=== PATIENT | female | born 1980 ===

== ENCOUNTER 2016-12-29 19:34 | Inpatient (IN) | payer MEDICAID, SELFPAY ==
[2016-12-29 19:52] VITALS: BMI 29.2
[2016-12-29] MEDS ORDERED: Lactated Ringer's 1,000 ML IV ONE (19:54)
[2016-12-29] MEDS ORDERED: Ampicillin 2 GM in Sodium Chloride 0.9% 100 ML IVPB ONE (19:55)
[2016-12-29 21:28] LABS: BASO % 0.2 % (0.0-2.0); EOS % 0.3 % (0.0-4.0); HEMATOCRIT 34.4 % (34.0-47.0); LYMPH # 1.5 K/uL (1.0-4.3); LYMPH % 23.3 % (20.0-40.0); MEAN CELL VOLUME 86.4 fl (81.0-99.0); MEAN CORPUSCULAR HEMOGLOBIN 28.2 pg (27.0-31.0); MEAN CORPUSCULAR HGB CONC 32.7 g/dL (33.0-37.0); MEAN PLATELET VOLUME 10.5 fl (7.2-11.7); MONO # 0.3 K/uL (0.0-0.8); MONO % 5.3 % (0.0-10.0); NEUT # 4.4 K/uL (1.8-7.0); NEUT % 70.9 % (50.0-75.0); RED CELL DISTRIBUTION WIDTH 15.5 % (11.5-14.5); WHITE BLOOD COUNT 6.3 K/uL (4.8-10.8)
--- NOTE | 2016-12-29 23:24 | OBHP ---
Datetime: 12/29/2016 20:31 HEENT - PN: Normal IP Hx Assessment: The History has been Reviewed and is Current IP Indication for Induction: Polyhydramnios; Other IP Indication for Induction Oth: AST: 97, ALT:172, Alk Phos:340 (Annotations: Data stored by N on behalf of user) IP Chief Complaint: Other DTRs - PN: Not Done Datetime: 12/29/2016 20:30 IP Adm Impression: Term, intrauterine ; No Active Labor; Intact Membranes IP Admit Plan: Admit to unit; Initiate labor induction protocol Admit Comment, IP Provider: [employer] medical records technician # [id number] 36 YO F @ 39.3 weeks w/ cholestasis presents to [facility] from [facility] to be induced. - Denies LOF, CTX, VB. Has +ve movements - PT intially requested leaving AMA, she was explained all complications and risks of leaving. All questions were answered, patient has decided to stay and continue with the induction of labor. -POBHX: 1 previous , Current: Cholestasis, Polyhydramnios, AMA PMH: Anemia PSH: Cholecystectomy Allergy:NKDA Medicine: Topical benedryl, PNV, Iron F/H: None HIV: neg GBS: Positive Rubella: Immune HBsAg: neg Social Hx: Denies alcohol and drug use A/P 36 YO F @ 39.3 weeks is being induced - Continuous monitoring - Soap and water enema - Penicillin G 5MU followed by Penicilling G 2.5 MU Q4. - Cytotec Fay Zaidi M.D. PGY-1 OB Hospitalist note. Notfied earlier today by Natty Cali at [facility]...pt had elevated LFT's on y . MFM was consulted because she had LFT's in November which were spring lower. She was being followed for cholestasis of preg (bile acids repeat were pending). She still c/o itching. +FM; No SROM; no VB; No CTX A: IUP at 39w/elevated LFT's/borderline polyhydramnio (acc to [facility])/ AMA / GBS+ PLAN: admit to L_D; discussion with pt and her about medical condition, IOL, labor, delivr ey and pain management. They understood. MAHNDO Pelvic Type - PN: Adequate Extremities - PN: Normal Abdomen - PN: Normal Back - PN: Normal Lungs - PN: Normal Heart - PN: Normal Neurologic - PN: Normal General - PN: Normal Presentation-Admit: Vertex FHR - Baseline A Provider: 120 Membranes, Provider: Intact Contraction Comments Provider: occ Comments, ACOG Physical Exam: ROS: Geneeral no weakness; no fatigue HEENT: No MCNEILL; no visual dist Resp: No SOB; no Cough CV: NO CP; no palpitations GI: No N/V/D : No F/U/D MS: NO joint pain Pool Provider: Negative Vital Signs Provider: Reviewed; Within Normal Limits NICHD Variability Prov Fetus A: Moderate 6-25bpm NICHD Accel Fetus A IP Provider: [id number] FHR Category Provider Fetus A: Category I NICHD Decel Fetus A IP Provider: None Dilatation, Provider: 1 Station, Provider: -3 Genitourinary Exam: Normal
[2016-12-30] MEDS ORDERED: AMPicillin 1 GM in Sodium Chloride 0.9% 100 ML IVPB SCH (01:00)
[2016-12-30] MEDS ORDERED: Penicillin G 5 Million Unit Vial IVPB ONE (05:22)
[2016-12-30 07:53] VITALS: TEMP 98.4
[2016-12-30] MEDS: Lactated Ringer's 1,000 ML IV SCH ×2 (10:00→19:05)
[2016-12-30] MEDS ORDERED: Oxytocin 30 units/LR 500ML 30 U/500 ML BAG IV ONE ×3 (10:43→17:32)
--- NOTE | 2016-12-30 11:17 | OBPN ---
Datetime: 12/30/2016 10:57 IP Progress Impression Other: Undergoing IOL secondary to cholestasis of IP Informed Consent Obtain: Risks, Benefits and Alternatives Discussed IP Progress Plan: Augmentation; Anesthesia consult Contraction Comments Provider: q2-4min FHR - Baseline A Provider: 140 Presentation-Admit: Vertex IP Progress Note Comment: 36 y/o P1 at 39w4d based on LMP 03/28/16 c/w 2nd TM u/s EDC 01/02/17. Admitt ed for IOL for cholestasis of and polyhydramnios. Pt is s/p cytotec x 3, last dose at 6:50a and s/p AROM at 9:15a by Dr. Carroll. PNC: [facility] w/ Natty Cali PNI: 1. cholestasis of : 12/28/16 AST 97/ALT 172, 12/05: Total bile acid 7.1, cholic acid 2.8, d eoxycholic acid 2.5. Pt reports intense pruritus generalized including palms and soles, no rash. 2. anemia: 12/29 H/H 11.2/34.4 plt 191 3. GCT+/GTT neg 4. GBS positive baceteriuria: 1st dose of penecillin given 5. AMA: had amnio, neg results, informaseq low risk Pmhx/pshx: cholecystectomy, uncomplicated All: morphine-severe headache Social hx: denies x 3 see vs above SVE by Dr. Carroll at 9a, 1-2/75/0, AROM clear moderate amt of fluid A/P: 36 y/o P1 at 39w4d undergoing IOL secondary to cholestasis of and polyhydramnios 1. Labor: s/p cytotec x 3, s/p AROM, pt requests epidural now, will start pitocin for augmentation after epidural placement 2. Fetus: category 1 tracing 3. GBS positive s/p loading dose of penicillin 4. analgesia: discussed risks vs benefits of epidural analgesia w/ patient and she requests epidur al placement, anesthesia consult, needs 1L bolus now 5. anticipate Vital Signs Provider: Reviewed; Within Normal Limits NICHD Accel Fetus A IP Provider: 15X15 FHR Category Provider Fetus A: Category I NICHD Variability Prov Fetus A: Moderate 6-25bpm NICHD Decel Fetus A IP Provider: None Datetime: 12/29/2016 20:30 Pool Provider: Negative Membranes, Provider: Intact Dilatation, Provider: 1 Station, Provider: -3
[2016-12-30] MEDS ORDERED: Lactated Ringer's 1,000 ML IV SCH (11:30)
[2016-12-30] MEDS ORDERED: Bupivacaine HCl 0.25% PF (10 ml) Inj ONE (12:02)
[2016-12-30] MEDS ORDERED: Fentanyl/Bupivacaine HCl 250 ML EPI ONE (12:02)
[2016-12-30] MEDS ORDERED: Oxytocin 20 units in LR 0 ML IV ONE (15:53)
--- NOTE | 2016-12-30 17:40 | OBDS ---
DELIVERY PERSONNEL Nurse Inbound Sales Consultant Certified: mark Delivery Doctor: Dr Glen Monsivais Nurse: mark Tree Specialist: RENUKA wong Anesthesiologist: Dr Kan Regulator Tester: mark Resident: Dr Stewart MATERNAL INFORMATION Delivery Anesthesia: Epidural Medications in Delivery: pitocin 30 in RL 500cc Estimated Blood Loss (ml): 250cc Placenta Cultured: No Maternal Complications: None RN Comments: to alive baby boy; 9/9; uneventful delivery; see md's notes Provider Comments: Delivered a live baby boy at 1628 that it was bulb suctioned on the perineum the transient maternal chest. The cord was clamped and cut and 3 vessels noted, cord blood was obtained a nd sent to the lab. There was a first-degree laceration which was repaired with 2-[address] nta was delivered at 5:15 PM intact. Estimated blood loss was 200 mL. The mother tolerated the proced ure well and the baby went to the nursery with Apgars of 9 weighing 4045 g LABOR SUMMARY EDC: 01/02/2017 00:00 No. Babies in Womb: 1 Attempted: No Labor Anesthesia: Epidural LABOR INFORMATION Onset of Labor: 12/30/2016 22:00 Complete Dilatation: 12/30/2016 16:10 Cervical Ripening Agents: Cytotec @ (Annotations: 50mcg PO at 06:55am) Cervical Ripening Agents: Cytotec @ 50mcg PO given as ordered Cervical Ripening Agents: Cytotec @ 50mcg PO Other Ripening Agents: na Oxytocin: Augmentation Group B Beta Strep: Positive Antibiotics # of Doses: 2 Antibiotics Time of Last Dose: 1515 Steroids Given: None MEMBRANES Membranes Rupture Method: Artificial Rupture of Membranes: 12/30/2016 09:50 Length of Rupture (hrs): 6.63 Amniotic Fluid Color: Clear Amniotic Fluid Amount: Large Amniotic Fluid Odor: Normal STAGES OF LABOR Stage 1 hrs: -5 Stage 1 min: -50 Stage 2 hrs: 0 Stage 2 min: 18 Stage 3 hrs: 0 Stage 3 min: 47 Total Time in Labor hrs: -4 Total Time in Labor min: -45 VAGINAL DELIVERY Laceration Extension: Second Degree Laceration Type: Perineal Laceration Repair: Yes Laceration Repair Note: 2.0 rapide Initial Vag Sponge Count: 5 Final Vag Sponge Count: 5 Initial Vag Sharps Count: 1 Final Vag Sharps Count: 1 Sharps Count Correct: Yes Count Comment: correct BABY A INFORMATION Infant Delivery Date/Time: 12/30/2016 16:28 Method of Delivery: Vaginal Born in Route : No : N/A Forceps: Outlet Vacuum Extraction: N/A Shoulder Dystocia : No SHOULDER DYSTOCIA BABY A Infant Delivery Date/Time: 12/30/2016 16:28 PRESENTATION/POSITION BABY A Presentation: Cephalic Cephalic Presentation: Vertex Vertex Position: Left Occipital Anterior Breech Presentation: N/A PLACENTA INFORMATION BABY A Placenta Delivery Time : 12/30/2016 17:15 Placenta Method of Delivery: Spontaneous Placenta Status: Delivered SCORES BABY A Heart Rate 1 min: >100 bpm Resp Effort 1 min: Good Cry Reflex Irritability 1 min: Cough or Sneeze or Pulls Away Muscle Tone 1 min: Active Motion Color 1 min: Body [place], Extremities Blue SCORE 1 MIN: 9 Heart Rate 5 min: >100 bpm Resp Effort 5 min: Good Cry Reflex Irritability 5 min: Cough or Sneeze or Pulls Away Muscle Tone 5 min: Active Motion Color 5 min: Body [place], Extremities Blue SCORE 5 MIN: 9 INFORMATION BABY A Gestational Age at Delivery: 39.0 Gestational Status: Term Outcome : Liveborn Condition : Stable Sex: Male IDENTIFICATION/MEDS BABY A ID Band Number: [id number] ID Band Location: Left Leg; Left Arm WEIGHT/LENGTH BABY A Infant Birthweight (gms): 4045 Infant Weight (lb): 8 Infant Weight (oz): 15 CORD INFORMATION BABY A No. Cord Vessels: 3 Nuchal Cord : Around Neck x1, Loose Nuchal Cord Other: 0 True Knot: 0 Infant Cord pH Baby Arterial: na Infant Cord pH Baby Venous: na Cord Blood Taken: Yes Banking/Donate Info: no Suction: Mouth; Nose; Pharynx
[2016-12-30 17:50] VITALS: RESP 17
[2016-12-30 19:03] VITALS: BP 103/61; PULSE 71
[2016-12-31 07:16] LABS: BASO % 0.1 % (0.0-2.0); EOS % 0.4 % (0.0-4.0); HEMATOCRIT 29.6 % (34.0-47.0); LYMPH # 1.8 K/uL (1.0-4.3); LYMPH % 17.2 % (20.0-40.0); MEAN CELL VOLUME 86.8 fl (81.0-99.0); MEAN CORPUSCULAR HEMOGLOBIN 28.1 pg (27.0-31.0); MEAN CORPUSCULAR HGB CONC 32.4 g/dL (33.0-37.0); MEAN PLATELET VOLUME 10.9 fl (7.2-11.7); MONO # 0.6 K/uL (0.0-0.8); NEUT % 76.3 % (50.0-75.0); RED CELL DISTRIBUTION WIDTH 15.4 % (11.5-14.5); WHITE BLOOD COUNT 10.5 K/uL (4.8-10.8)
--- NOTE | 2017-01-01 07:46 | OBPPN ---
Datetime: 01/01/2017 06:24 PP Pain Prov: Within normal limits PP Nausea Prov: Denies PP Flatus Prov: Yes PP BM Prov: Yes PP Heart Prov: Normal PP Lungs Prov: Normal PP Abdomen/Uterus Prov: Normal PP Lochia Prov: Normal PP Extremities Prov: Normal PP C/S Incision Prov: Not Applicable PP Progress Prov: Normal PP Comments Phys Exam Prov: Fundus firm below umbilicus - Dry skin and scratch cota noted on her lower extremities PP Impression Prov: Normal progression PP Plan Prov: Continue present management PP Progress Note Prov: 36 yo , w/ h/o cholestasis seen and examined bedside. Pt is continuing o n complaining of upper and lower extremity itchiness. She reports mild pelvic pain controlled w/ pain meds. OOB/Ambulating w/o dizziness. Breast/bottle feeding, she is currently limited with amount s he can breast feed because of the decrease in quantity of milk production. Tolerating PO diet well. Lochia is same as mensus. Voiding freely w/ no blood noted. Pt reports passing gas as well as havi ng a bowl movment. Denies fevers, chills, n/v/d, CP/SOB, lightheadedness and calf pain. - Pt does not desire a circumcision currently until the baby is doing better Assessment: 36 yo , s/p on 12/30/16 @ 16:28 tolerating pain w/ medication, tolerating o ral intake, adequate urine output, doing well on PPD#2 Hb: 9.6 Plan: - Stable for discharge - Mild/mod pain PRN: Ibuprofen 600mg PO Q6 PRN pain - Ferrous Sulfate 325 mg BID -Encourage breast feeding and ambulation - Benadryl 25 mg Q6 PRN for itchyness OB Hospitalist Addendum: Pt seen and examined by me. Agree w/ above. PPD 2 s/p , doing well, breast pumping. Discharge home today. (ES) IP PP Procedures: None Vital Signs Provider PP: Reviewed; Within Normal Limits
--- NOTE | 2017-01-01 07:46 | OBDCSUM ---
Datetime: 01/01/2017 06:26 Discharged to, Provider: Home Follow up at, Provider: [facility] Disch Instr Activity: Normal activity Disch Instr Diet: Regular Discharge Instructions, Provider: Routine instructions given Discharge Diagnosis, Provider: Term Delivered Discharge Time: 01/01/2017 07:45 Follow up in weeks, Provider: 6 weeks Disch Referrals: None Contraception discussed, Prov: Yes Disch Activity Restrictions: No sexual activity; Nothing in vagina - Sage, tampons, douche Discharge Comment, Provider: 36 YO Delivered a baby boy on 12/30/16 whose weight was 4045 gm 9,9 Pt is doing well and is stable for discharge. Prescriptions given for pain Encourage - PNV 1 tab PO once daily - Ibuprofen 600 mg PO Q6 PRN pain - Ferrous Sulfate 325 mg BID Ambulate w/ caution, nothing in vagina, no heavy lifitng, if excessive bleeding or fever without r elief from Tylenol go to the ED. - Advised to F/U w/ OBGYN in 6 weeks and 2-3 days for with christian science healer or PCP. Fay Zaidi PGY-1 Contraception after Delivery: Undecided
== END 2017-01-01 18:20 | disposition home or self-care (01) | DRG 373 ==
LOC: H.EROB2 19:34 → H.L&D 19:53 → H.OB/GYN 12-30 20:00
PROVIDERS: ADMIT Obstetrics & Gynecology; ATTEND Obstetrics & Gynecology
PROC: 10E0XZZ Delivery of Products of Conception, External Approach (ICD-10-PCS; principal; 2016-12-29)
PROC: 0KQM0ZZ Repair Perineum Muscle, Open Approach (ICD-10-PCS; 2016-12-29)
PROC: 4A1HXCZ Monitoring of Products of Conception, Cardiac Rate, External Approach (ICD-10-PCS; 2016-12-29)
DX: O40.3XX0 Polyhydramnios, third trimester, not applicable or unspecified (principal); K83.1 Obstruction of bile duct; O99.02 Anemia complicating childbirth; O26.62 Liver and biliary tract disorders in childbirth; D64.9 Anemia, unspecified; O09.523 Supervision of elderly multigravida, third trimester; O69.81X0 Labor and delivery complicated by cord around neck, without compression, not applicable or unspecified; Z3A.39 39 weeks gestation of pregnancy; Z37.0 Single live birth; O70.1 Second degree perineal laceration during delivery; O99.824 Streptococcus B carrier state complicating childbirth; L29.9 Pruritus, unspecified

== ENCOUNTER 2017-05-23 16:42 | Emergency (ER) | payer SELFPAY ==
[2017-05-23 16:42] VITALS: BMI 29.2
[2017-05-23 16:55] VITALS: BP 115/68; PULSE 61; RESP 16; TEMP 98.4; O2SAT 96
== END 2017-05-23 17:40 | disposition left against medical advice (07) ==
LOC: H.ER 16:42
DX: Z02.89 Encounter for other administrative examinations (principal)

== ENCOUNTER 2018-02-09 11:37 | Emergency (ER) | payer OTHER, SELFPAY ==
[2018-02-09 11:37] VITALS: BMI 29.2
[2018-02-09 11:50] VITALS: TEMP 99.2; O2SAT 100
--- NOTE | 2018-02-09 12:14 | ED PDOC ---
HPI: SOB/CHF/COPD Time Seen by Provider: 02/09/18 11:53 Chief Complaint (Provider): Chest pain History Per: Patient History/Exam Limitations: no limitations Onset/Duration Of Symptoms: Days (5 days) Current Symptoms Are (Timing): Still Present Additional Complaint(s): Chest pain, dyspnea off and on. No leg pain, nausea, vomit, diarrhea, weakness , fever, cough, nasal congestion. No throat pain. No abd pain. No back pain. No long distance travel or hormone use. Past Medical History Reviewed: Nursing Documentation, Vital Signs Vital Signs: Last Vital Signs Temp 99.2 F 02/09/18 11:49 Pulse 86 02/09/18 12:49 Resp 22 02/09/18 11:49 BP 110/68 02/09/18 11:49 Pulse Ox 100 02/09/18 12:18 - Medical History PMH: Anxiety, Kidney Stones Denies: Diabetes, Hepatitis, HIV, HTN, Seizures, Sexually Transmitted Disease - Surgical History Surgical History: Cholecystectomy Denies: Appendectomy (denies) - Family History Family History: States: Unknown Family Hx - Living Arrangements Living Arrangements: With Family - Social History Alcohol: None Drugs: Denies - Home Medications Home Medications: Ambulatory Orders Medication Instructions Recorded Vit No.126/Iron/Folic 1 tab PO DAILY 12/29/16 [Classic Tablet] DiphenhydrAMINE [Benadryl] 25 mg PO Q6 PRN cap 12/31/16 Ferrous Sulfate 325 mg PO BID #60 tablet 12/31/16 Ibuprofen [Motrin] 600 mg PO Q6 PRN #30 tab 12/31/16 Sennosides [Senokotxtra] 17.2 mg PO HS #20 tablet 12/31/16 - Allergies Allergies/Adverse Reactions: Allergies Allergy/AdvReac Type Severity Reaction Status Date / Time morphine Allergy HEADACHE Verified 12/30/16 19:59 Wells Criteria for PE - Wells Criteria for Pulmonary Embolism Clinical Signs and Symptoms of DVT: No P.E is #1 Diagnosis, or Equally Likely: No Heart Rate >100: No Immobilization at least 3 days;Surgery previous 4 weeks: No Previous, objectively diagnosed PE or DVT: No Hemoptysis: No Malignancy w/treatment within 6 months, or palliative: No Total Score: 0 Review of Systems ROS Statement: Except As Marked, All Systems Reviewed And Found Negative Cardiovascular: Positive for: Chest Pain Respiratory: Positive for: Shortness of Breath Physical Exam - Reviewed Nursing Documentation Reviewed: Yes Vital Signs Reviewed: Yes - Physical Exam Appears: Positive for: Non-toxic, No Acute Distress Head Exam: Positive for: ATRAUMATIC, NORMAL INSPECTION, NORMOCEPHALIC Skin: Positive for: Normal Color, Warm, DRY Eye Exam: Positive for: EOMI, Normal appearance, PERRL ENT: Positive for: Nasal Congestion. Negative for: Pharyngeal Erythema, Tonsillar Exudate Neck: Positive for: Normal, Painless ROM Cardiovascular/Chest: Positive for: Regular Rate, Rhythm, Chest Non Tender. Negative for: Edema Respiratory: Positive for: CNT, Normal Breath Sounds Gastrointestinal/Abdominal: Positive for: Normal Exam, Soft. Negative for: Tenderness Back: Positive for: Normal Inspection. Negative for: L CVA Tenderness, R CVA Tenderness Extremity: Positive for: Normal ROM. Negative for: Tenderness, Pedal Edema Neurologic/Psych: Positive for: Alert, special agent in charge II-XII, Oriented. Negative for: Motor/Sensory Deficits - Laboratory Results Result Diagrams: 02/09/18 12:50 02/09/18 12:50 Interpretation Of Abn Labs: 3.5 k - ECG ECG: Positive for: Interpreted By Me, Viewed By Me ECG Rhythm: Positive for: Normal QRS, Sinus Rhythm. Negative for: Normal ST Segment (s1q3t3) O2 Sat by Pulse Oximetry: 100 Pulse Ox Interpretation: Normal - Radiology X-Ray: Interpreted by Me, Viewed By Me X-Ray Interpretation: No Acute Disease - Progress ED Course And Treament: 1427: Pt. is stable. Feeding baby and speaking in full sentences. Is aaox3 and pain free/dyspnea free. States trouble when nose breathing when it is congested. No issues breathing through mouth. Will fu with pcp. Not likely PE as dimer neg and is low risk. Disposition - Clinical Impression Clinical Impression: Dyspnea, Nasal congestion, Hypokalemia - Patient ED Disposition Is Patient to be Admitted: No Counseled Patient/Family Regarding: Studies Performed, Diagnosis, Need For Followup - Disposition Referrals: [facility] [Outside] - 02/10/18 Disposition: Routine/Home Disposition Time: 14:30 Condition: STABLE Additional Instructions: Return if not better in 3 days. Instructions: Shortness of Breath (Dyspnea) (DC), Cough, Runny Nose, and the Common Cold, Hypokalemia (DC) Forms: [facility] (Yi) Print Language: CZECH
[2018-02-09] MEDS ORDERED: Albuterol-Ipratrop 3 mg / 0.5 (3 ml) UD IH STA (12:20)
[2018-02-09] MEDS ORDERED: Sodium Chloride 0.9% 1,000 ML IV STA (12:20)
[2018-02-09] MEDS ORDERED: Albuterol-Ipratrop 3 mg / 0.5 (3 ml) UD ONE (12:33)
[2018-02-09 12:55] LABS: BASO % 0.4 % (0.0-2.0); EOS % 0.6 % (0.0-4.0); HEMOGLOBIN 12.9 g/dL (12.0-16.0); LYMPH # 1.8 K/uL (1.0-4.3); LYMPH % 22.7 % (20.0-40.0); MEAN CELL VOLUME 82.1 fl (81.0-99.0); MEAN CORPUSCULAR HEMOGLOBIN 27.6 pg (27.0-31.0); MEAN CORPUSCULAR HGB CONC 33.6 g/dL (33.0-37.0); MEAN PLATELET VOLUME 9.2 fl (7.2-11.7); MONO # 0.4 K/uL (0.0-0.8); MONO % 4.7 % (0.0-10.0); NEUT # 5.6 K/uL (1.8-7.0); NEUT % 71.6 % (50.0-75.0); NRBC % 0.2 % (0.0-0.0); RBC 4.68 Mil/uL (3.80-5.20); RED CELL DISTRIBUTION WIDTH 14.7 % (11.5-14.5); WHITE BLOOD COUNT 7.9 K/uL (4.8-10.8)
[2018-02-09 13:11] LABS: INR 1.1 (0.9-1.2); PARTIAL THROMBOPLASTIN TIME 31.9 Seconds (25.6-37.1); PROTHROMBIN TIME 11.9 Seconds (9.8-13.1)
[2018-02-09 13:19] LABS: ALB/GLOB RATIO 1.2 (1.0-2.1); ALT/SGPT 34 U/L (9-52); AST/SGOT 31 U/L (14-36); BLOOD UREA NITROGEN 7 mg/dl (7-17); CALCIUM 9.7 mg/dL (8.4-10.2); GFR AFRICAN-AMERICAN > 60; GFR NON-AFRICAN AMERICAN > 60
[2018-02-09 13:28] LABS: B-TYPE NATRIURETIC PEPTIDE 30.9 pg/ml (0-450)
[2018-02-09] MEDS ORDERED: Potassium Chloride 20 mEq ER Tab PO STA (13:29)
--- NOTE | 2018-02-09 14:28 | RAD ---
HISTORY: dyspnea COMPARISON: No prior. TECHNIQUE: Chest PA and lateral FINDINGS: LUNGS: No active pulmonary disease. PLEURA: No significant pleural effusion identified. No pneumothorax apparent. CARDIOVASCULAR: Normal. OSSEOUS STRUCTURES: No significant abnormalities. VISUALIZED UPPER ABDOMEN: Limited evaluation. Surgical clips in the right upper quadrant of the abdomen. OTHER FINDINGS: None. IMPRESSION: No focal airspace opacity.
[2018-02-09 14:47] VITALS: BP 124/71; PULSE 79; RESP 19
--- NOTE | 2018-02-10 08:35 | CARD ---
APPROVED REPORT EKG Measurement Heart [id number] WV 160P17 [id number] <Conclusion> Normal sinus rhythm Nonspecific ST abnormality Abnormal ECG
== END 2018-02-09 14:39 | disposition home or self-care (01) ==
LOC: H.ER 11:37
DX: R06.00 Dyspnea, unspecified (principal); R09.81 Nasal congestion; E87.6 Hypokalemia; F41.9 Anxiety disorder, unspecified

== ENCOUNTER 2018-11-23 13:32 | Emergency (ER) | payer OTHER ==
[2018-11-23 13:32] VITALS: BMI 29.2
[2018-11-23 13:52] VITALS: BP 115/71; PULSE 79; RESP 16; TEMP 98; O2SAT 99
[2018-11-23] MEDS ORDERED: Sodium Chloride 0.9% 1,000 ML IV STA (14:04)
--- NOTE | 2018-11-23 14:17 | ED PDOC ---
HPI: Dental Pain/Injury Time Seen by Provider: 11/23/18 14:00 Chief Complaint (Nursing): Dental Pain Chief Complaint (Provider): Dental Pain History Per: Patient History/Exam Limitations: no limitations Onset/Duration Of Symptoms: Other (x1 week) Current Symptoms Are (Timing): Still Present Additional Complaint(s): Patient is a 38 y/o female with no significant PMHx who presents to the ED for evaluation of left lower mouth pain for the past week. Patient states four weeks ago she had a molar removed. Patient claims she has been taking Amoxicillin, for the past four days, with no relief of symptoms. Patient denies fever and chills. PCP: Dr. Deneen Garcia Past Medical History Reviewed: Historical Data, Nursing Documentation, Vital Signs Vital Signs: Last Vital Signs Temp 98.0 F 11/23/18 13:47 Pulse 79 11/23/18 13:47 Resp 16 11/23/18 13:47 BP 115/71 11/23/18 13:47 Pulse Ox 99 11/23/18 13:47 - Medical History PMH: Anxiety, Kidney Stones Denies: Diabetes, Hepatitis, HIV, HTN, Seizures, Sexually Transmitted Disease - Surgical History Surgical History: Cholecystectomy Denies: Appendectomy (denies) - Family History Family History: States: Unknown Family Hx - Home Medications Home Medications: Ambulatory Orders Medication Instructions Recorded Vit No.126/Iron/Folic 1 tab PO DAILY 12/29/16 [Classic Tablet] DiphenhydrAMINE [Benadryl] 25 mg PO Q6 PRN cap 12/31/16 Ferrous Sulfate 325 mg PO BID #60 tablet 12/31/16 Ibuprofen [Motrin] 600 mg PO Q6 PRN #30 tab 12/31/16 Sennosides [Senokotxtra] 17.2 mg PO HS #20 tablet 12/31/16 Clindamycin [Cleocin] 1 tab PO QID #28 cap 11/23/18 - Allergies Allergies/Adverse Reactions: Allergies Allergy/AdvReac Type Severity Reaction Status Date / Time morphine Allergy HEADACHE Verified 12/30/16 19:59 Review of Systems ROS Statement: Except As Marked, All Systems Reviewed And Found Negative Constitutional: Negative for: Fever, Chills ENT: Positive for: Mouth Pain (left lower) Physical Exam - Reviewed Nursing Documentation Reviewed: Yes Vital Signs Reviewed: Yes - Physical Exam Appears: Positive for: No Acute Distress Head Exam: Positive for: ATRAUMATIC, NORMAL INSPECTION, NORMOCEPHALIC Skin: Positive for: Normal Color, Warm, DRY Eye Exam: Positive for: EOMI, Normal appearance, PERRL ENT: Positive for: Normal ENT Inspection, Other (tenderness to posterior left lower mandible; no obvious sign of infection or abscess noted) Neck: Positive for: Normal, Painless ROM, Supple Cardiovascular/Chest: Positive for: Regular Rate, Rhythm. Negative for: Murmur Respiratory: Positive for: Normal Breath Sounds. Negative for: Respiratory Distress Neurological/Psych: Positive for: Alert, Oriented (x3) - Laboratory Results Result Diagrams: 11/23/18 14:35 11/23/18 14:35 - ECG O2 Sat by Pulse Oximetry: 99 (RA) Pulse Ox Interpretation: Normal - Progress ED Course And Treament: CT MANDIBLE: IMPRESSION: Left mandibular geographic/lytic appearing lesion with interruption of the lateral left cortex-given its location, dental pathology here is 1 consi deration. This time no indwelling tooth apex here is present. Clinical correlation is recommended in terms of any prior dental extractions here. Extractions at are reported in this location than intrinsic cystic lytic lytic lesion of the left mandible is inferred. Consultation with oral surgeon is advised. Although no gross fluid like abscess here is seen. Some intra osseous left mandibular cystic fluid collection is possible. The regional immediate soft tissues here show minimal fat plane increased densities compatible with minimal regional inflammatory changes. No large extra osseous fluid like abscess is seen on this non IV present appear benign. Contrast enhanced study (patient refused IV contrast. The cervical lymph nodes that are present appear benign. Medical Decision Making Medical Decision Making: Time: 1403 Impression: Dental Pain Plan: CT Mandible w/ IV Contrast CMP Urine CBC IV Fluids Time: 1642 FINDINGS: NASAL BONES: Unremarkable. ORBITS: Unremarkable. PARANASAL SINUSES/ MASTOIDS: Clear. MAXILLA: Unremarkable. MANDIBLE/ TEMPOROMANDIBULAR JOINTS: A left lateral mandibular subcortical lucency 9 mm by 7 mm with lateral cortical interruption is present overseas axis series 2, image 44 it is unknown if the patient had a prior extraction here or if this represents a initial intraosseous cystic lesion with the interruption of the low left lateral mandibular cortex. There is slight ill definition to the regional fat planes bordering this portion of the left mandible. A discrete fluid like collection however outside the left mandible is not identified. Patient refused IV contrast which would assist in such characterisation of a pre contrast I so dense abscess although this is not believed likely present. Some mild inflammatory changes minimally phlegmon like fairly well contained to the interrupted left lateral mandibular cortex angiographic lytic appearing lesion here is favored. Cervical marilyn densities are present-the largest left submandibular a short axis of 5.5 mm this long axis 13.5 mm. Its fatty hilum is maintained. A benign left submandibular lymph node here is favored. No necrotic or suspicious appearing marilyn densities are seen on this non IV contrast enhanced study. SKULL BASE: Unremarkable. TEMPORAL BONES: Believed benign. Middle ears and mastoid grossly unremarkable. OTHER FINDINGS: None. IMPRESSION: Left mandibular geographic/lytic appearing lesion with interruption of the lateral left cortex-given its location, dental pathology here is 1 cons ideration. This time no indwelling tooth apex here is present. Clinical correlation is recommended in terms of any prior dental extractions here. Extractions at are reported in this location than intrinsic cystic lytic lytic lesion of the left mandible is inferred. Consultation with oral surgeon is advised. Although no gross fluid like abscess here is seen. Some intra osseous left mandibular cystic fluid collection is possible. The regional immediate soft tissues here show minimal fat plane increased densities compatible with minimal regional inflammatory changes. No large extra osseous fluid like abscess is seen on this non IV present appear benign. Contrast enhanced study (patient refused IV contrast. The cervical lymph nodes that are present appear benign. - Scribe Attestation: Documented by Joel Wells, acting as a scribe for Sal Parsons PA-C. Provider Scribe Attestation: All medical record entries made by the Scribe were at my direction and pers onally dictated by me. I have reviewed the chart and agree that the record accurately reflects my personal performance of the history, physical exam, medical decision making, and the department course for this patient. I have also personally directed, reviewed, and agree with the discharge instructions and disposition. Disposition - Clinical Impression Clinical Impression: Pain, dental - Patient ED Disposition Is Patient to be Admitted: No - Disposition Referrals: Dionne Sandoval DDS [Doctor Dental Surgery] - Disposition: Routine/Home Disposition Time: 17:19 Condition: FAIR Prescriptions: Clindamycin [Cleocin] 1 tab PO QID #28 cap Instructions: Dental Pain Print Language: GABONESE
[2018-11-23 14:58] LABS: BASO % 0.3 % (0.0-2.0); EOS % 0.5 % (0.0-4.0); HEMOGLOBIN 12.8 g/dL (12.0-16.0); LYMPH # 2.2 K/uL (1.0-4.3); LYMPH % 25.4 % (20.0-40.0); MEAN CELL VOLUME 84.6 fl (81.0-99.0); MEAN CORPUSCULAR HEMOGLOBIN 27.8 pg (27.0-31.0); MEAN CORPUSCULAR HGB CONC 32.9 g/dL (33.0-37.0); MEAN PLATELET VOLUME 9.6 fl (7.2-11.7); MONO # 0.4 K/uL (0.0-0.8); MONO % 4.2 % (0.0-10.0); NEUT # 6.1 K/uL (1.8-7.0); NEUT % 69.6 % (50.0-75.0); NRBC % 0.1 % (0.0-0.0); RBC 4.59 Mil/uL (3.80-5.20); RED CELL DISTRIBUTION WIDTH 14.1 % (11.5-14.5); WHITE BLOOD COUNT 8.8 K/uL (4.8-10.8)
[2018-11-23 15:06] LABS: ALB/GLOB RATIO 1.3 (1.0-2.1); ALBUMIN 5.1 g/dL (3.5-5.0); ALT/SGPT 59 U/L (9-52); AST/SGOT 43 U/L (14-36); BLOOD UREA NITROGEN 4 mg/dl (7-17); CALCIUM 9.6 mg/dL (8.4-10.2); GFR NON-AFRICAN AMERICAN > 60
[2018-11-23] MEDS ORDERED: Sodium Chloride 0.9% 50 ML IV ONE (15:57)
[2018-11-23] MEDS ORDERED: Iohexol 300 100 ML IJ ONE (15:57)
--- NOTE | 2018-11-23 16:48 | CT ---
Date of service: 11/23/2018 PROCEDURE: CT MAXILLOFACIAL BONES WITHOUT CONTRAST HISTORY: r/o mass COMPARISON: None available. TECHNIQUE: Contiguous axial CT images of the maxillofacial bones were obtained. Coronal and sagittal reformats were generated. Radiation dose: Total exam DLP = 697.39 mGy-cm. This CT exam was performed using one or more of the following dose reduction techniques: Automated exposure control, adjustment of the mA and/or kV according to patient size, and/or use of iterative reconstruction technique. FINDINGS: NASAL BONES: Unremarkable. ORBITS: Unremarkable. PARANASAL SINUSES/ MASTOIDS: Clear. MAXILLA: Unremarkable. MANDIBLE/ TEMPOROMANDIBULAR JOINTS: A left lateral mandibular subcortical lucency 9 mm by 7 mm with lateral cortical interruption is present overseas axis series 2, image 44 it is unknown if the patient had a prior extraction here or if this represents a initial intraosseous cystic lesion with the interruption of the low left lateral mandibular cortex. There is slight ill definition to the regional fat planes bordering this portion of the left mandible. A discrete fluid like collection however outside the left mandible is not identified. Patient refused IV contrast which would assist in such characterisation of a pre contrast I so dense abscess although this is not believed likely present. Some mild inflammatory changes minimally phlegmon like fairly well contained to the interrupted left lateral mandibular cortex angiographic lytic appearing lesion here is favored. Cervical marilyn densities are present-the largest left submandibular a short axis of 5.5 mm this long axis 13.5 mm. Its fatty hilum is maintained. A benign left submandibular lymph node here is favored. No necrotic or suspicious appearing marilyn densities are seen on this non IV contrast enhanced study. SKULL BASE: Unremarkable. TEMPORAL BONES: Believed benign. Middle ears and mastoid grossly unremarkable. OTHER FINDINGS: None. IMPRESSION: Left mandibular geographic/lytic appearing lesion with interruption of the lateral left cortex-given its location, dental pathology here is 1 consideration. This time no indwelling tooth apex here is present. Clinical correlation is recommended in terms of any prior dental extractions here. Extractions at are reported in this location than intrinsic cystic lytic lytic lesion of the left mandible is inferred. Consultation with oral surgeon is advised. Although no gross fluid like abscess here is seen. Some intra osseous left mandibular cystic fluid collection is possible. The regional immediate soft tissues here show minimal fat plane increased densities compatible with minimal regional inflammatory changes. No large extra osseous fluid like abscess is seen on this non IV present appear benign. Contrast enhanced study (patient refused IV contrast. The cervical lymph nodes that are present appear benign.
== END 2018-11-23 18:00 | disposition home or self-care (01) ==
LOC: H.ER 13:32
DX: K08.89 Other specified disorders of teeth and supporting structures (principal); F41.9 Anxiety disorder, unspecified
CPT/HCPCS: 70486; 80053; 81025; 85025; 99285; J7030; Q9967